=== PATIENT | male | born 1970 | race Caucasian/White ===

== ENCOUNTER 2025-01-07 15:26 | Emergency (ER) | payer OTHER, SELFPAY ==
[2025-01-07] VITALS (10 sets, daily range): BP systolic 124–169; BP diastolic 70–79; PULSE 59–74; RESP 9–25; TEMP 36.4; O2SAT 94–98; BMI 36.8
--- OUTSIDE RECORDS SUMMARY | 2025-01-07 15:28 | XMS_ITS | Clinical Summary ---
Author Organization [facility] Address [address] [place] [address] Care Team Providers Care Art Instructor Name Role Phone Jeovany Gomez MD Primary Care Provider [phone] Allergies No known active allergies Medications Magnesium 200 mg tabIndications:Fr equent PVCs Take 200-400 mg by mouth daily 30 tablet Active Additional Information Patient not taking.Reported on 08/31/2024 [id number] rachelle Oil (FISH OIL) 1,000 mg (120 mg-180 mg) capIndications:Fr equent PVCs Take 1 capsule by mouth once daily. 30 capsule Active flash glucose scanning reader (FreeStyle Yeimi 2 [place]) miscIndications:T ype 1 diabetes mellitus with diabetic polyneuropathy (HC) As directed. (Freestyle Yeimi 2 [place]). Diagnosis Type 1 Diabetes, frequent blood sugar variance, with hypoglycemia. 1 Each 021 Active miscellaneous medical supply (Blood Pressure Cuff) miscIndications:P rimary hypertension As directed. Home blood pressure monitoring for Essential hypertension Diagnosis. Upper arm automatic Cuff. 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 Test 4 times per day. Diagnosis Diabetes Type 2. 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 Test 4 times per day. Diagnosis Diabetes Type 2. 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 FOR ADMINISTERING INSULIN AT HOME 400 Each 3 025 Active rosuvastatin 10 mg tabletIndications :Hypercholesterol emia Take 1 Tablet (10 mg) by mouth at bedtime. For Cholesterol. 90 Tablet 3 025 Active hydroCHLOROthiazi de 12.5 mg tabletIndications :Primary hypertension Take 1 Tablet (12.5 mg) by mouth once daily. 90 Tablet 2 025 Active insulin lispro 100 unit/mL injectionIndicati ons:Type 1 diabetes mellitus with diabetic polyneuropathy (HC) INJECT UNDER THE SKIN PER SLIDING SCALE BASED ON BLOOD GLUCOSE AND FOOD EATEN. 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 6 Each 3 024 2024 Discontinued Active Problems Problem Noted Date Diagnosed Date COVID-19 virus infection 06/16/2022 Overview (06/16/2022): Mar 2022. Colon polyp 04/30/2021 Overview (04/30/2021): Colonoscopy 04/2021 SSA, repeat in 5 years Positive cardiac stress test 05/23/2019 Overview (04/18/2020): April 2019: positive stress test and numerous PVC's, referral to Cardiology. Mar 2020: Repeat holter shows PVC 7.8%. Sensorineural hearing loss, bilateral 01/16/2018 Hypercholesterolemia 08/03/2017 Overview (08/03/2017): July 2017: STarted Atorvastatin (Lipitor) 20mg. ASCVD Risk [employer]: 6.4 % 10 Year risk after info entered before starting med. Lumbar foraminal stenosis 12/19/2016 Overview (12/19/2016): ~ October 2016: L4-L5 Interlaminar epidural steroid injection by Dr. Hicks. Primary hypertension 11/02/2016 Overview (02/03/2023): October 2016: started on lisinopril/ Hydrochlorothiazide. May 2022: Patient stopped all blood pressure medication on his own Jun 2021, then restarting ( hydrochlorothiazide / lisinopril/ and Metoprolol ) on May 2022, but did not restart amlodipine. ~ Jan 2023: increased lisinopril dose of combo pill, now on lisinopril 20mg and hctz 12.5 combo. Peripheral neuropathic pain 09/29/2016 Overview (09/29/2016): September 2016: Dr. Beltran evaluate, diabetic vs Lumbar vs other. Further evaluate ordered. JOCELINE 07/02/2005 AHI-89 05/09/2014 Diabetes mellitus type 1 07/05/2012 Overview (07/11/2023): May 2021: Uses VIALS of insulin, NOT PENS. Diabetes Mellitus Type 1 (250.01) Scoliosis (and kyphoscoliosis), idiopathic Resolved Problems Problem Noted Date Diagnosed Date Resolved Date Obstructive sleep apnea (adult) (pediatric) 05/09/2014 03/08/2017 Encounters Date Type Department Care Team Description 01/07/2025 Nurse Triage [facility] [address] [place] [address] Jeovany Gomez MD 12/14/2024 Telephone [facility] [address] [place] [address] Jeovany Gomez MD Error-please disregard (appt cancellation) 12/13/2024 Refill [facility] [address] [place] [address] Jeovany Gomez MD Refill Request (Freestyle Yeimi 3 Plus Sensor) 11/16/2024 Refill [facility] [address] [place] [address] Jeovany Gomez MD Refill Request (Lisinopril, Metoprolol Succinate) 10/08/2024 Refill [facility] [address] [place] [address] Jeovany Gomez MD Refill Request (Rosuvastatin) from Last 3 Months Immunizations Immunization Administration Dates Next Due Hepatitis B (Adult) 04/24/2018 Influenza, IIV3 (Age >=3 years) 03/22/2007 Influenza, IIV4 03/10/2020, 9,04/24/2018,2013 Influenza, IIV4 (=>6mos) MDV 03/01/2017 Td, Preservative Free (age > = 7 Years) 03/01/2017 Tdap 03/01/2017,11/04/2006 Family History Medical History Relation Name Comments Diabetes Father Cancer-prostate Maternal Uncle Good Health Mother Relation Name Status Comments Father Maternal Uncle Mother Social History Tobacco Use Types Packs/Day Years Used Date Smoking Tobacco: Never Smokeless Tobacco: Never Tobacco Cessation:Counseling Given: Yes Alcohol Use Standard Drinks/Week Comments Yes 0 (1 standard drink = 0.6 oz pur e alcohol) Socail occasions only PHQ-2 Answer Date Recorded PHQ-2 TOTAL SCORE 0 08/31/2024 Social Connections Answer Date Recorded Do you often feel lonely or isolated from those around you? 0 08/31/2024 Financial Resource Strain Answer Date R ecorded Difficulty of Paying Living Expenses 3 08/31/2024 Difficulty of Paying Living Expenses Not on file 08/31/2024 Food Insecurity Answer Date Recorded Do you worry your food will run out before you are able to buy more? 1 08/31/2024 Transportation Needs Answer Date Record ed Does lack of transportation keep you from medica l appointments? 1 08/31/2024 Does lack of transportation keep you from work, meetings or getting things that you need? 1 08/31/2024 Housing Stability Answer Date Recorded What is your housing situation today? 1 08/31/2024 Utilities Answer Date Recorded Do you have trouble paying f or utilities (for example, heat, electricity, water, phone)? 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 Not on file Not on file Not on file STAFF Not on file Not on file Not on file Obstetrics History Last Filed Vital Signs Vital Sign Reading Time Taken Comments Blood Pressure 122/78 08/31/2024 11:27 AM CDT Pulse 60 08/31/2024 11:27 AM CDT Temperature 36.1 C (97 F) 06/06/2019 7:15 AM LEASING PROPERTY MANAGER Respiratory Rate 18 06/06/2019 11:4 5 AM LEASING PROPERTY MANAGER Oxygen Saturation 97% 08/31/2024 11: 27 AM CDT Inhaled Oxygen Concentration - - Weight 138.5 kg (305 lb 4.8 oz) 025 11:27 AM CDT Height 191.8 cm (6' 3.5) 08/31/2024 11 :27 AM CDT Body Mass Index 37.66 08/31/2024 11:27 AM CDT Plan of Treatment Upcoming Encounters Date Type Department Care Team (Late st Contact Info) Description 01/10/2025 11:10 AM CDT Office Visit [facility] [address] [place] [address] Jeovany Gomez MD [address] [place] [address] 03/04/2025 10:20 AM CDT Office Visit [facility] [address] [place] [address] Jeovany Gomez MD [address] [place] [address] Health Maintenance Due Date Last Done Comments HIV for age 15-65 1985 Pneumococcal series for age 50+ (1 of 2 - PCV) 1989 Hepatitis B series for 19+ ( 2 of 3 - 19+ 3-dose series) 05/22/2018 04/24/2018 Zoster (shingles) series for age 50+ (1 of 2) 2020 COVID-19 vaccine series ( season) 2024 04/20/2021, 09/01/2020, 08/04/2020 Influenza Vaccine (#1) 2025 , 03/07/2019, 04/24/2018, Additional history exists BMI (ht and wt on same day) for age 18+ 08/31/2025 08/31/2024, 08/25/2023, 01/17/2023, Additional history exists Depression screening for age 12+ 08/31/2025 08/31/2024, 08/25/2023, 07/12/2023, Additional history exists Colonoscopy through age 75 04/29/202604/29, 04/29/2021, 04/29/2021 Tetanus booster 03/01/2027 03/01/2017, 02/20, 11/04/2006 Lipids for age 45-75 08/31/2029 08/31/2024, 01/17/2023, 08/09/2022, Additional history exists Hepatitis C screening for ag e 18-79 Completed 10/13/2016 Medical Devices Implanted Type Area Puncher Device Identifier Shelf Expiration Date Model / Serial / Lot [id number] 1-4mm 60cc Medtronic Fine Canclls Freeze Dried Implanted:Qty: 1 on 03/09/2017 by Yeimy Stock MD at [facility] Explanted:at [facility] (Quantity not on file) N/A: Spine Medtronic Spine/Ortho 01/03/2022 [id number] / [id number] / Washer 17mm - [id number] Implanted:Qty: 1 on 03/09/2017 by Yeimy Stock MD at [facility] N/A: Spine Medtronic Spine/Ortho [id number] / / Screw Lmbr Ant 6.5x25mm Pyramid Plus Va - [id number] Implanted:Qty: 1 on 03/09/2017 by Yeimy Stock MD at [facility] N/A: Spine Medtronic Spine/Ortho [id number]# / / [id number] ne Matrix 5cc Progenix Puttydbm Implanted:Qty: 1 on 03/09/2017 by Yeimy Stock MD at [facility] Explanted:at [facility] (Quantity not on file) N/A: Spine Medtronic Spine/Ortho 09/17/2018 [id number]# / [id number] / Spacer Peek Md 16mm 8deg Perimeter Alif Peek - [id number] Implanted:Qty: 1 on 03/09/2017 by Yeimy Stock MD at [facility] N/A: Spine Medtronic Spine/Ortho 12/02/2023 [id number] / / [id number] Spacer Peek Md 16mm 8deg Perimeter Alif Peek - [id number] Implanted:Qty: 1 on 03/09/2017 by Yeimy Stock MD at [facility] N/A: Spine Medtronic Spine/Ortho 06/21/2024 [id number] / / 20DK Set Screw Lmbr Ant 5.5mm Solera Break Off - [id number] Implanted:Qty: 6 on 03/09/2017 by Yeimy Stock MD at [facility] N/A: Spine Medtronic Spine/Ortho [id number]# / / Screw Lmbr Post 6.5x45mm Solera 5.5/6 Va Cocr - [id number] Implanted:Qty: 1 on 03/09/2017 by Yeimy Stock MD at [facility] N/A: Spine Medtronic Spine/Ortho [id number]# / / Screw Lmbr Post 6.5x50mm Solera 5.5/6 Va Cocr - [id number] Implanted:Qty: 3 on 03/09/2017 by Yeimy Stock MD at [facility] N/A: Spine Medtronic Spine/Ortho [id number]# / / Screw Lmbr Post 7.5x45mm Solera 5.5/6 Va Cocr - [id number] Implanted:Qty: 2 on 03/09/2017 by Yeimy Stock MD at [facility] N/A: Spine Medtronic Spine/Ortho [id number]# / / Logan Lmbr 70x5.5mm Solera 5.5/6cvd Titnm - [id number] Implanted:Qty: 2 on 03/09/2017 by Yeimy Stock MD at [facility] N/A: Spine Medtronic Spine/Ortho [id number] # / / Procedures Procedure Name Priority Date/Time Associated Diagnosis Comments LIPID PANEL W REFLEX MEASURED LDL Routine 08/31/2024 11:13 AM CDT Hypercholesterolemi a COLONOSCOPY SCREENING Routine 04/29/2021 10:03 AM LEASING PROPERTY MANAGER Screen for colon cancer ANTI HCV Routine 10/13/2016 8:35 AM CDT Paresthesia from Last 3 Months or Most Recently Relevant to Health Maintenance Results * (ABNORMAL) LIPID PANEL W REFLEX MEASURED LDL (08/31/2024 11:13 AM CDT) CHOLESTEROL, TOTAL 206(H) <200 mg/dL [facility] HDL CHOLESTEROL 59 > OR = 40 mg/dL [facility] TRIGLYCERIDES 43 <150 mg/dL [facility] LDL-CHOLESTEROL 134(H) mg/dL (calc) [facility] Comment: Reference range: <100 Desirable range <100 mg/dL for primary prevention; <70 mg/dL for patients with CHD or diabetic patients with > or = 2 CHD risk factors. LDL-C is now calculated using the Karthik calculation, which is a validated novel method providing better accuracy than the Friedewald equation in the estimation of LDL-C. Melvin WORTHY et al. JESUSITA. 2013;310(19): 5872-2541 (http://education.Motive Power system/faq/ZLB910) CHOL/HDLC RATIO 3.5 <5.0 (calc) [facility] NON HDL CHOLESTEROL 147(H) <130 mg/dL (calc) [facility] Comment: For patients with diabetes plus 1 major ASCVD risk factor, treating to a non-HDL-C goal of <100 mg/dL (LDL-C of <70 mg/dL) is considered a therapeutic option. Blood BLOOD SPECIMEN / Unknown 08/31/2024 11:13 AM CDT 08/31/2024 11:14 AM CDT us Jeovany Gomez MD CHEMISTRY Final Res ult [facility] [address] [place] [address], [facility] [address] [place] [address] * COLONOSCOPY (04/29/2021 10:29 AM LEASING PROPERTY MANAGER) 04/29/2021 10:2 9 AM LEASING PROPERTY MANAGER Narrative Transcriptions Melvin Knott MD - 04/29/2021 12:14 PM CST Patient Name: Hans Roth Procedure Date: 04/29/2021 Gender: Male Date of : 1970 Admit Type: Outpatient Procedure: Colonoscopy Proceduralist: Melvin Knott MD , Lina Carson, RN(Nurse) Referring MD: Jeovany Gomez Indications/Pre-Op Diagnosis: Screening for colorectal malignant neoplasm, This is the patient's first colonoscopy Medications: Fentanyl 150 micrograms IV, Midazolam 4 mgIV, The level of sedation administered wasmoderate Procedure Description: The patient had risks, benefits and alternatives explained to andgave informed consent. The patient had a stable cardiopulmonary status and judged an adequate candidate for conscious sedation. The [id number] was passed through the anus and advanced tothe cecum, identified by appendiceal orifice and ileocecal valve. The colonoscopy was performed without difficulty. The patient toleratedthe procedure well. The quality of the bowel preparation was good. The ileocecal valve, appendiceal orifice, and rectum were photographed. Complications: No immediate complications. Estimated Blood Loss & Specimen: Estimated blood loss: none. Specimen collected - Yes and sent to Laboratory Findings: The perianal and digital rectal examinations were normal. A 3 mm polyp was found in the ascending colon. The polyp was sessile. The polyp was removed with a cold biopsy forceps. Resection and retrieval were complete. The exam was otherwise without abnormality on direct and retroflexion views. Impressions/Post-Op Diagnosis: - One 3 mm polyp in the ascending colon, removed with a cold biopsy forceps. Resected and retrieved. - The examination was otherwise normal on direct and retroflexionviews. Recommendation: - Patient has a contact number available for emergencies. The signsand symptoms of potential delayed complications were discussed with the patient. Return to normal activities tomorrow. Written discharge instructions were provided to the patient. - Resume previous diet. - Continue present medications. - Await pathology results. - Repeat colonoscopy is recommended. The colonoscopy date will be determined after pathology results from today's exam become available for review. Moderate Sedation: Moderate (conscious) sedation was administered by the endoscopy nurse and supervised by the endoscopist. The following parameters were monitored: oxygen saturation, heart rate, respiratory rate, blood pressure, adequacy of pulmonary ventilation and reponse to care. Please refer to the patient's medical record flowsheets and nursing notes for moderate sedation details. Total physician intraservice time was 16 minutes. Melvin Knott MD 04/29/2021 11:11:27 AM This report has been signed electronically. Note Initiated On: 04/29/2021 10:29 AM Procedure Code(s): --- Professional --- 61022, Colonoscopy, flexible; with biopsy, single or multiple Diagnosis Code(s): --- Professional --- Z12.11, Encounter for screening formalignant neoplasm of colon K63.5, Polyp of colon CPT copyright 2020 [employer]. All rights reserved. The codes documented in this report are preliminary and upon program officer reviewmay be revised to meet current compliance requirements. Scope In: 10:52:26 AM Scope Withdrawal Time 0 hours 9 minutes 4 seconds Scope Out: 11:06:50 AM Melvin Knott MD PROCEDURE ORD Edited Re sult - Final * ANTI HCV (10/13/2016 8:35 AM CDT) HEPATITIS C ANTIBODY Non-Reacti ve Non-Reacti ve 10/13/2016 2:21 PM CDT [facility] Blood BLOOD SPECIMEN / Unknown Venipuncture / Unknown 10/13/2016 8:35 AM CDT 10/13/2016 8:35 AM CDT Narrative [facility] - 10/13/2016 2:21 PM CDT Antibodies to HCV not detected; does not exclude the possibility of exposure to HCV. Jeovany Gomez MD SEND OUTS Final Res ult [facility] [address] [place] [address], [place] from Last 3 Months or Most Recently Relevant to Health Maintenance Insurance [place] [id number] Advance Directives * Full Code (Latest Code Status on File) Date Activated Date Inactivated Comments 06/06/2019 9:31 AM 06/06/2019 4:16 PM * Full Code Date Activated Date Inactivated Comments 03/10/2017 7:52 AM 03/12/2017 4:14 PM * Full Code Date Activated Date Inactivated Comments 03/09/2017 5:37 AM 03/09/2017 5:18 PM Care Teams Art Instructor Relationship Specialty Start Date End Date [place] [address] [place] [address] PCP - General Family Practice 01/17/23
--- NOTE | 2025-01-07 15:52 | ED.CHESTPAIN ---
HPI - Chest Pain General Time Seen by Provider: 15:52 Date Seen: 01/07/25 Chief Complaint: Chest Pain Stated Complaint: tight chest/right arm is numb Time Seen by Provider: 01/07/25 15:50 Source: patient and RN notes reviewed Mode of arrival: ambulatory Limitations: no limitations History of Present Illness HPI narrative: This 54-year-old male had a situation last night that was very upsetting to him. After the fact he admits he was quite upset, develops severe right-sided neck pain. He states it felt like it was inside the neck, went to the base of his right head, had secondary severe headache. He noted no visual changes but went to laid down, noted significant gait imbalance almost like motion sickness. He states there were no visual changes. Actually went to bed around 8:30 p.m., awoke around 4:30 a.m. or 5:00 a.m.. He states his whole right arm felt numb like he slept wrong. He does note there still is sense of sensory change along the backside of his upper arm and the 2nd 3rd and 4th finger. He states he took a knife earlier and was pressing into those fingertips and could not feel the sharpness of the knife. He does not have a headache now, neck pain has resolved. He has had diabetes I believe he said for 37 or 38 years, has been controlled. He had cardiac stress testing and an angiogram maybe about 3 or 4 years ago, he states his coronary arteries were clean. 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 He does have chest tightness or heaviness today. At the time last night, he did take his blood pressure and his systolic pressure was in the low 200s. He states his blood pressure is usually not high. He notes no 2 gait disturbance now, no numbness tingling elsewhere, he notes he has normal motor function throughout his arm. He talked to his doctor who told him to be evaluated, reviewed with him that I do agree. Related Data Home Medications ?Medication ?Instructions ?Recorded ?Confirmed hydrochlorothiazide 12.5 mg tablet 12.5 mg PO DAILY 01/07/25 01/07/25 insulin glargine 100 unit/mL 25 unit subcut DAILY 01/07/25 01/07/25 subcutaneous solution (Lantus U-100 Insulin) insulin lispro 100 unit/mL subcut 01/07/25 subcutaneous solution lisinopril 20 mg tablet 20 mg PO DAILY 01/07/25 01/07/25 metoprolol succinate 25 mg 25 mg PO BID 01/07/25 01/07/25 tablet,extended release 24 hr rosuvastatin 10 mg tablet 10 mg PO QPM 01/07/25 01/07/25 rosuvastatin 5 mg tablet 5 mg PO QPM 01/07/25 01/07/25 Allergies Allergy/AdvReac Type Severity Reaction Status Date / Time No Known Drug Allergies Allergy Verified 01/07/25 15:41 Review of Systems Status of ROS Reports: 6 or more systems reviewed and unremarkable except as noted in History and below PFSH PFS Social History Smoking Status: Never smoker How often do you have a drink containing alcohol: monthly or less How many standard drinks containing alcohol do you have on a typical day: 1 or 2 AUDIT-C Alcohol total score: 1 Non-prescribed substance use: denies use Exam Const Vital Signs, click to edit/add: Vital Signs - 24 hr 01/07/25 15:36 01/07/25 16:19 01/07/25 16:21 Temperature 97.6 F Pulse Rate 69 Pulse Rate [Pulse Oximeter] 74 Respiratory Rate 22 25 H Blood Pressure 132/79 Blood Pressure [Right Upper Arm] 169/70 H Pulse Oximetry 97 94 94 Oxygen Delivery Method Room Air Room Air 01/07/25 16:22 01/07/25 16:45 01/07/25 17:00 Temperature Pulse Rate 68 70 62 Pulse Rate [Pulse Oximeter] Respiratory Rate 11 L 20 19 Blood Pressure Blood Pressure [Right Upper Arm] Pulse Oximetry 96 97 96 Oxygen Delivery Method 01/07/25 17:15 01/07/25 17:30 01/07/25 17:33 Temperature Pulse Rate 64 59 L 62 Pulse Rate [Pulse Oximeter] Respiratory Rate 9 L 20 16 Blood Pressure 124/72 Blood Pressure [Right Upper Arm] Pulse Oximetry 98 95 95 Oxygen Delivery Method Room Air 01/07/25 17:45 Temperature Pulse Rate Pulse Rate [Pulse Oximeter] Respiratory Rate 21 Blood Pressure Blood Pressure [Right Upper Arm] Pulse Oximetry Oxygen Delivery Method This 54-year-old male is alert, interactive no apparent distress. He is very pleasant and conversive, speech is normal. Pupils equal and reactive, sclerae clear, extraocular muscles intact. No gross visual changes on confrontation. Symmetrical facial function. Neck is thicker but supple common organomegaly, rebound or guarding, no masses. He is no reproducible neck tenderness, neck is full range of motion without any complaints of pain at this time. Lungs are clear, good air entry, no wheezing crackles, tachypnea, no accessory muscle use. CV regular rate and rhythm, no murmur, normal S1-S2, no S3-S4. Abdomen soft, nontender, nondistended. Skin is grimm, no rash. Is no lower extremity edema. Strength is 5/5 and symmetric throughout upper extremities and lower extremities. He has no dysmetria, no tremors. He is complaining of sense of different feeling on the back of his right upper arm in comparison to his left. States the sensation on the front of the arm in the forearm and hand are normal outside of the tips of the 2nd 3rd and 4th fingers on the right hand. States they just feel different, states they feel . Still has normal motor throughout this extremity. Documenting provider has reviewed patient's vital signs: yes Course Course ED Course: This patient certainly has concerning changes with chest symptoms as well as the significant right neck pain and headache last night and now with sensory changes in the right arm. It sounds as if they were more dense early but still has some residual symptoms in the right fingers, posterior upper arm. His EKG which was done by nursing on arrival is reassuring. Will put him on pulse oximetry and cardiac monitoring to look for any hypoxia or arrhythmia. Will get full complement of labs. I have discussed with him that I do think we should do head CT and CT angio of his head neck looking for things like dissection and bleeding. With his ongoing chest tightness, will also look at a D-dimer, consider further imaging if D-dimer elevated or if he becomes hypoxic. Otherwise will start with a portable chest x-ray, full complement of labs and head imaging. Reevaluation(s) Time of Reevaluation #1: 18:23 Reevaluation #1: Patient is requesting to leave, states he cannot wait for brain MR imaging. He wants to get this scheduled at a later date, reviewed with him that I cannot do that. He states he will go through his primary. I have advised him against leaving. I have reviewed with him that we have not ruled out possibility of small stroke. If he has had 1 and we have not discovered it with the MR imaging, he could be at risk for subsequent strokes as he will not be on appropriate medication. He states he understands, he states he really can not wait any longer. He states he will follow-up. He also understands that if he has increased symptoms, we may not have MR imaging at other times, certainly do not usually have this possible be on daytime hours. He is choosing to leave, he does seem to completely understand what I am telling him and understands the risks of his choices. Consultations Consultation #1: Spoke with Dr. Ball regarding this patient. She agrees with workup so far and we have found no concerning changes on his CT imaging. She does agree that he should proceed with MR brain noncontrast as he is high risk given his diabetes. We will be able to accommodate that with a brief weight, there are a few other scheduled patients ahead of him. Patient is updated that he will be getting MR brain to rule out vascular ischemic disease. We did review that his troponin is good, no evidence of any heart attack. He is happy to hear this, does agree to wait for the MR brain to complete his workup. Did discuss with patient that he has some plaque in the internal carotids but there is nothing concerning for stenosis. Time: 17:00 Vital Signs Vital signs: Initial Vital Signs Temperature 97.6 F 01/07/25 15:36 Temperature Source Temporal Artery Scan 01/07/25 15:36 Pulse Rate 74 01/07/25 15:36 Respiratory Rate 22 01/07/25 15:36 Blood Pressure 169/70 H 01/07/25 15:36 Blood Pressure Mean 103 01/07/25 15:36 Pulse Oximetry 97 01/07/25 15:36 Oxygen Delivery Method Room Air 01/07/25 15:36 Vital Signs Temperature 97.6 F 01/07/25 15:36 Pulse Rate 74 01/07/25 15:36 Respiratory Rate 22 01/07/25 15:36 Blood Pressure 169/70 H 01/07/25 15:36 Pulse Oximetry 97 01/07/25 15:36 Oxygen Delivery Method Room Air 01/07/25 15:36 Temperature 97.6 F 01/07/25 15:36 Pulse Rate 62 01/07/25 17:33 Respiratory Rate 21 01/07/25 17:45 Blood Pressure 124/72 01/07/25 17:33 Pulse Oximetry 95 01/07/25 17:33 Oxygen Delivery Method Room Air 01/07/25 17:33 MDM - Chest Pain Lab Data Attestation: I reviewed the patient's lab results. Labs: Lab Results 01/07/25 Range/Units 16:10 WBC 6.83 (4.50-11.00) K/uL RBC 5.16 (4.30-5.90) m/uL Hgb 14.0 (13.5-17.5) gm/dL Hct 43.5 (37.0-53.0) % MCV 84 (80-100) fL MCH 27 (26-34) pg MCHC 32 (32-36) gm/dL RDW Coeff of Shannan 13.4 (11.5-15.5) % Plt Count 197 (140-440) K/uL Neut % (Auto) 54.0 (42.0-72.0) % Lymph % (Auto) 32.2 (20-44) % [place] % (Auto) 9.4 (0.0-11.0) % Eos % (Auto) 3.7 (0.0-7.0) % Baso % (Auto) 0.7 (0.0-3.0) % Neut # (Auto) 3.69 (1.7-7.0) K/uL Lymph # (Auto) 2.20 (0.90-2.90) K/uL [place] # (Auto) 0.60 (0.00-0.90) K/UL Eos # (Auto) 0.25 (0.00-0.50) K/uL Baso # (Auto) 0.05 (0.00-0.30) K/uL Abs Immat Gran (auto) 0.00 (0.00-0.30) K/uL Imm/Tot Granulo (auto) 0.0 % INR 1.02 (0.91-1.10) APTT 27 (23-33) Seconds D-Dimer Quant (PE/DVT) 0.33 (0.00-0.50) ug/ml Sodium 136 (135-149) mmol/L Potassium 3.9 (3.6-5.1) mmol/L Chloride 102 (96-114) mmol/L Carbon Dioxide 28 (20-32) mmol/L Anion Gap 6 L (7-15) mEq/L BUN 18 (7-30) mg/dL Creatinine 0.8 (0.5-1.5) mg/dL Estimated Creat Clear 129.60 Estimated GFR 105 ml/min Glucose 124 H (60-115) mg/dL Calcium 9.0 (8.4-10.6) mg/dL Total Bilirubin 0.4 (0.1-1.5) mg/dL AST 30 (12-35) U/L ALT 21 (4-50) U/L Alkaline Phosphatase 60 (40-150) U/L Troponin I < 0.01 (0.01-0.04) ng/mL NT-Pro-B Natriuret Pep 27 (See Note) pg/mL Total Protein 7.0 (6.0-8.3) g/dL Albumin 4.3 (3.3-5.0) g/dL Imaging Data Chest x-ray: Attestation: I have reviewed the pertinent imaging results. My impression: No acute pathology on my preliminary review. Radiologist's impression: Patient: SAADIA ROTH Facility:?[facility] Patient ID:?[id number] Site Patient ID:?[id number]. Site :?1970 Study:?XRay-Chest 1 view-01/07/2025 4:35:20 PM Ordering Physician:Mariah Valencia Final Report: Indication: Chest tightness Technique: Two frontal images of the chest Comparison: None. Findings/Impression: Cardiovascular and mediastinum: Heart size is normal. Unremarkable mediastinum. Lungs and pleural space: Lungs are clear. No sign of infiltrate or mass. No sign of pleural effusion. No pneumothorax. Bones and soft tissues: No acute findings. Dictated by Coral Castillo MD @ 01/07/2025 4:47:44 PM (Electronic Signature) CT scan - head: Attestation: I have reviewed the pertinent imaging results. Radiologist's impression: Patient: SAADIA ROTH Facility:?[facility] Patient ID:?[id number] Site Patient ID:?[id number]. Site :?1970 Study:?CT-Head WITHOUT; NON ACUTE-01/07/2025 4:38:29 PM Ordering Physician:Mariah Valencia Final Report: CT HEAD DATE: 01/07/2025 CLINICAL HISTORY: Patient with focal neurological deficits. TECHNIQUE: Standard CT scanning of the head was performed. COMPARISON: None. FINDINGS: There is no intracranial hemorrhage. There is no territorial infarction. There are mild microangiopathic changes. There is diffuse parenchymal volume loss. There is no mass effect or midline shift. The calvarium is unremarkable. The orbits are unremarkable. The paranasal sinuses are unremarkable. The mastoid air cells are unremarkable. The soft tissues are unremarkable. IMPRESSION: 1. No intracranial hemorrhage or territorial infarction. 2. Mild microangiopathic changes and diffuse parenchymal volume loss. Please note that all CT scans at this facility use dose modulation, iterative reconstruction, and/or weight-based dosing when appropriate to reduce radiation dose to as low as reasonably achievable. Dictated by: Marine Pérez MD @ 01/07/2025 16:47:29 (Electronic Signature) CT- Other: Attestation: I have reviewed the pertinent imaging results. Radiologist's impression: Patient: SAADIA ROTH Facility:?[facility] Patient ID:?[id number] Site Patient ID:?[id number]. Site :?1970 Study:?CT-Neck Angio Angio 95 CC'S ISOVUE 370 NON ACUTE-01/07/2025 4:44:23 PM Ordering Physician:?Turner Valencia Final Report: CT ANGIOGRAM NECK DATE: 01/07/2025 CLINICAL HISTORY: Patient with focal neurological deficits. TECHNIQUE: Standard helical CT image acquisition of the neck up to the skull base after bolus intravenous contrast enhancement. 2D and 3D MIP images for post-processing were performed and interpreted on an independent workstation and 3D images were permanently archived. COMPARISON: CT same day. FINDINGS: The origins of the great vessels from the aortic arch are patent. The origin of the right vertebral artery is patent. The origin of the left vertebral artery is patent. The common carotid arteries are patent. There is plaque without stenosis at the origin of the right internal carotid artery. There is plaque without stenosis at the origin of the left internal carotid artery. The rest of the cervical segments of the internal carotid arteries are patent up to the skull base. The left vertebral artery is dominant. The cervical segments of the vertebral arteries are patent up to the skull base. The visualized lung apices are unremarkable. The thyroid gland is unremarkable. The soft tissues of the neck are unremarkable. There are degenerative changes in the cervical spine. IMPRESSION: Patent cervical vasculature. Please note that all CT scans at this facility use dose modulation, iterative reconstruction, and/or weight-based dosing when appropriate to reduce radiation dose to as low as reasonably achievable. Dictated by: Marine Pérez MD @ 01/07/2025 16:49:25 (Electronic Signature) Patient: SAADIA ROTH Facility:?[facility] Patient ID:?[id number] Site Patient ID:?[id number]. Site :?1970 Study:?CT-Head Angio 95 CC'S ISOVUE 370 NON ACUTE-01/07/2025 4:44:04 PM Ordering Physician:Mariah Valencia Final Report: CT ANGIOGRAM HEAD DATE: 01/07/2025 CLINICAL HISTORY: Patient with focal neurological deficits. TECHNIQUE: Standard helical CT image acquisition through the intracranial circulation following intravenous administration of contrast material with bolus tracking. 2D and 3D MIP images for post-processing were performed and interpreted on an independent workstation and 3D images were permanently archived. COMPARISON: CT same day. FINDINGS: There is no proximal intracranial large vessel occlusion. There is no intracranial aneurysm. The right internal carotid artery is normal. The right middle cerebral artery and its branches are normal. The right anterior cerebral artery and its branches are normal. The left internal carotid artery is normal. The left middle cerebral artery and its branches are normal. The left anterior cerebral artery and its branches are normal. The anterior communicating artery is well visualized and appears normal. The right vertebral artery and PICA are normal. The left vertebral artery and PICA are normal. The left vertebral artery is dominant. The basilar artery is patent and appears normal. The right posterior cerebral artery is normal. The left posterior cerebral artery is normal. The visualized venous structures are patent. IMPRESSION: Patent proximal intracranial vasculature without intracranial aneurysms. Please note that all CT scans at this facility use dose modulation, iterative reconstruction, and/or weight-based dosing when appropriate to reduce radiation dose to as low as reasonably achievable. Dictated by: Marine Pérez MD @ 01/07/2025 16:51:11 (Electronic Signature) ECG Data Attestation: I personally reviewed and interpreted this ECG as follows: ( Normal sinus rhythm, 69 beats per minute. Incomplete right bundle branch block, some artifact but no definitive ischemia or infarct.) ECG interpretation date: 01/07/25 ECG interpretation time: 16:00 Prior ECG tracings: not available for review Discharge Plan Discharge Clinical Impression: Chest tightness, Numbness of fingers Patient Disposition: Home, Self-Care Condition: Stable Instructions: Chest Pain (ED), Paresthesia (ED) Additional Instructions: Need to contact your primary care provider tomorrow. It is highly recommended that you get a noncontrast brain MRI done [facility] to ensure that your symptoms are not from a small stroke. If you have further concerns or issues, please seek re-evaluation. Would also talk to your primary care provider about consideration of further cardiac stress testing, see what he recommends. Activity Level: Activity as Tolerated Prescriptions: No Action insulin glargine [Lantus U-100 Insulin] 100 unit/mL solution 25 unit subcut DAILY lisinopril 20 mg tablet 20 mg PO DAILY metoprolol succinate 25 mg tablet extended release 24 hr 25 mg PO BID insulin lispro 100 unit/mL solution subcut rosuvastatin 5 mg tablet 5 mg PO QPM rosuvastatin 10 mg tablet 10 mg PO QPM hydrochlorothiazide 12.5 mg tablet 12.5 mg PO DAILY Follow Up/Referrals: Jeovany Walker MD [Primary Care Provider, Family Practice] Stand Alone Forms: [employer] Interactive Info Instructions
--- NOTE | 2025-01-07 16:02 | CRLHL7_ITS ---
For Patients: As a result of the Cures Act, medical imaging exams and procedure reports are released immediately into your electronic medical record. You may view this report before your referring provider. If you have questions, please contact your health care provider. CT ANGIOGRAM NECK DATE: 01/07/2025 CLINICAL HISTORY: Patient with focal neurological deficits. TECHNIQUE: Standard helical CT image acquisition of the neck up to the skull base after bolus intravenous contrast enhancement. 2D and 3D MIP images for post-processing were performed and interpreted on an independent workstation and 3D images were permanently archived. COMPARISON: CT same day. FINDINGS: The origins of the great vessels from the aortic arch are patent. The origin of the right vertebral artery is patent. The origin of the left vertebral artery is patent. The common carotid arteries are patent. There is plaque without stenosis at the origin of the right internal carotid artery. There is plaque without stenosis at the origin of the left internal carotid artery. The rest of the cervical segments of the internal carotid arteries are patent up to the skull base. The left vertebral artery is dominant. The cervical segments of the vertebral arteries are patent up to the skull base. The visualized lung apices are unremarkable. The thyroid gland is unremarkable. The soft tissues of the neck are unremarkable. There are degenerative changes in the cervical spine. IMPRESSION: Patent cervical vasculature. Please note that all CT scans at this facility use dose modulation, iterative reconstruction, and/or weight-based dosing when appropriate to reduce radiation dose to as low as reasonably achievable. Dictated by: Marine Pérez MD @ 01/07/2025 16:49:25 (Electronically Signed)
--- NOTE | 2025-01-07 16:02 | CRLHL7_ITS ---
For Patients: As a result of the Century Cures Act, medical imaging exams and procedure reports are released immediately into your electronic medical record. You may view this report before your referring provider. If you have questions, please contact your health care provider. CT ANGIOGRAM HEAD DATE: 01/07/2025 CLINICAL HISTORY: Patient with focal neurological deficits. TECHNIQUE: Standard helical CT image acquisition through the intracranial circulation following intravenous administration of contrast material with bolus tracking. 2D and 3D MIP images for post-processing were performed and interpreted on an independent workstation and 3D images were permanently archived. COMPARISON: CT same day. FINDINGS: There is no proximal intracranial large vessel occlusion. There is no intracranial aneurysm. The right internal carotid artery is normal. The right middle cerebral artery and its branches are normal. The right anterior cerebral artery and its branches are normal. The left internal carotid artery is normal. The left middle cerebral artery and its branches are normal. The left anterior cerebral artery and its branches are normal. The anterior communicating artery is well visualized and appears normal. The right vertebral artery and PICA are normal. The left vertebral artery and PICA are normal. The left vertebral artery is dominant. The basilar artery is patent and appears normal. The right posterior cerebral artery is normal. The left posterior cerebral artery is normal. The visualized venous structures are patent. IMPRESSION: Patent proximal intracranial vasculature without intracranial aneurysms. Please note that all CT scans at this facility use dose modulation, iterative reconstruction, and/or weight-based dosing when appropriate to reduce radiation dose to as low as reasonably achievable. Dictated by: Marine Pérez MD @ 01/07/2025 16:51:11 (Electronically Signed)
--- NOTE | 2025-01-07 16:02 | XR_ITS ---
Patient: SAADIA ROTH Facility:?[facility] Patient ID:?[id number] Site Patient ID:?[id number]. Site :?1970 Study:?XRay-Chest 1 view-01/07/2025 4:35:20 PM Ordering Physician:Mariah Valencia Final Report: Indication: Chest tightness Technique: Two frontal images of the chest Comparison: None. Findings/Impression: Cardiovascular and mediastinum: Heart size is normal. Unremarkable mediastinum. Lungs and pleural space: Lungs are clear. No sign of infiltrate or mass. No sign of pleural effusion. No pneumothorax. Bones and soft tissues: No acute findings. Dictated by Coral Castillo MD @ 01/07/2025 4:47:44 PM (Electronic Signature)
--- NOTE | 2025-01-07 16:03 | CRLHL7_ITS ---
For Patients: As a result of the Century Cures Act, medical imaging exams and procedure reports are released immediately into your electronic medical record. You may view this report before your referring provider. If you have questions, please contact your health care provider. CT HEAD DATE: 01/07/2025 CLINICAL HISTORY: Patient with focal neurological deficits. TECHNIQUE: Standard CT scanning of the head was performed. COMPARISON: None. FINDINGS: There is no intracranial hemorrhage. There is no territorial infarction. There are mild microangiopathic changes. There is diffuse parenchymal volume loss. There is no mass effect or midline shift. The calvarium is unremarkable. The orbits are unremarkable. The paranasal sinuses are unremarkable. The mastoid air cells are unremarkable. The soft tissues are unremarkable. IMPRESSION: 1. No intracranial hemorrhage or territorial infarction. 2. Mild microangiopathic changes and diffuse parenchymal volume loss. Please note that all CT scans at this facility use dose modulation, iterative reconstruction, and/or weight-based dosing when appropriate to reduce radiation dose to as low as reasonably achievable. Dictated by: Marine Pérez MD @ 01/07/2025 16:47:29 (Electronically Signed)
[2025-01-07 16:19] LABS: Hematocrit* 43.5 % (37.0-53.0); Hemoglobin* 14.0 gm/dL (13.5-17.5); Immature Granulocytes Abs Auto 0.00 K/uL (0.00-0.30); Immature Granulocytes Pct Auto 0.0 %; Lymphocytes Absolute Auto 2.20 K/uL (0.90-2.90); Mean Corpuscular HGB Conc 32 gm/dL (32-36); Mean Corpuscular Hemoglobin 27 pg (26-34); Mean Corpuscular Volume 84 fL (80-100); RDW Coefficient of Variation % 13.4 % (11.5-15.5); Red Blood Count* 5.16 m/uL (4.30-5.90); White Blood Count* 6.83 K/uL (4.50-11.00)
[2025-01-07 16:22] LABS: Slide Review Reflex No
[2025-01-07 16:33] LABS: Chloride* 102 mmol/L (96-114)
[2025-01-07 16:34] LABS: Albumin* 4.3 g/dL (3.3-5.0); Potassium* 3.9 mmol/L (3.6-5.1); Sodium* 136 mmol/L (135-149)
[2025-01-07 16:36] LABS: Blood Urea Nitrogen* 18 mg/dL (7-30); Creatinine* 0.8 mg/dL (0.5-1.5); Est. Creatinine Clearance* 129.60; Estimated Glomerular Filt Rate 105 ml/min
[2025-01-07 16:37] LABS: Alanine Aminotransferase* 21 U/L (4-50); Alkaline Phosphatase* 60 U/L (40-150); Anion Gap 6 mEq/L (7-15); Aspartate Amino Transferase* 30 U/L (12-35); Bilirubin Total* 0.4 mg/dL (0.1-1.5); Calcium* 9.0 mg/dL (8.4-10.6); Carbon Dioxide* 28 mmol/L (20-32); Glucose* 124 mg/dL (60-115); Total Protein* 7.0 g/dL (6.0-8.3)
[2025-01-07 16:38] LABS: INR 1.02 (0.91-1.10); Prothrombin Time 14.3 Seconds
[2025-01-07 16:42] LABS: D Dimer Quantitative* 0.33 ug/ml (0.00-0.50)
[2025-01-07 16:48] LABS: NT Pro B Type NatriureticPept* 27 pg/mL (See Note)
== END 2025-01-07 18:31 | disposition home or self-care (01) ==
PROVIDERS: Emergency Provider Family Medicine; PCP Family Medicine
DX: R07.89 Other chest pain (principal); M54.2 Cervicalgia; R20.0 Anesthesia of skin
CPT/HCPCS: 36415; 70450; 70496; 70498; 71045; 80053; 83880; 84484; 85025; 85379; 85610; 85730; 93005; 94761; 99284; 99285; Q9967